=== PATIENT | male | born 1955 ===

== ENCOUNTER 2017-10-20 13:38 | Emergency (ER) | payer OTHER, SELFPAY ==
[2017-10-20 13:39] VITALS: BMI 33.7
[2017-10-20 13:54] VITALS: RESP 18; TEMP 97.8
[2017-10-20 15:12] LABS: ALB/GLOB RATIO 1.4 (1.1-1.8); ALBUMIN 4.7 g/dL (3.0-4.8); CALCIUM 9.6 mg/dL (8.4-10.5); GFR AFRICAN-AMERICAN > 60; GFR NON-AFRICAN AMERICAN > 60
[2017-10-20 15:17] LABS: BASO # 0.05 K/mm3 (0.0-2.0); EOS # 0.2 (0.0-0.7); EOS % 3.1 % (1.5-5.0); GRAN # 2.77 (1.4-6.5); GRAN % 57.7 % (50.0-68.0); HEMOGLOBIN 13.8 g/dL (14.0-18.0); LYMPH # 1.4 (1.2-3.4); LYMPH % 28.8 % (22.0-35.0); MEAN CELL VOLUME 87.6 fl (80.0-105.0); MEAN CORPUSCULAR HGB CONC 33.1 g/dl (31.0-37.0); MEAN PLATELET VOLUME 9.5 fl (7.0-11.0); MONO # 0.5 (0.1-0.6); MONO % 9.4 % (1.0-6.0); RBC 4.76 10^6/uL (3.5-6.1); RED CELL DISTRIBUTION WIDTH 14.8 % (11.5-14.5); WHITE BLOOD COUNT 4.8 10^3/ul (4.5-11.0)
--- NOTE | 2017-10-20 15:23 | ED PDOC ---
Arrival/HPI - General Chief Complaint: ENT Problem Time Seen by Provider: 10/20/17 14:31 Historian: Patient - History of Present Illness Narrative History of Present Illness (Text): 10/20/17 15:20 62yo male with PMHx of hypertension and CAD present with complaint of nose bleeds, usually in the morning. States bleeding started 2weeks ago. leeding usually last for seconds, but lasted for 3minutes this morning. He denies nasal congestion, rhinorrhea, cold symptoms, facial pain, any other complaint. Past Medical History - Provider Review Nursing Documentation Reviewed: Yes - Infectious Disease Hx of Infectious Diseases: None - Cardiac Hx Cardiac Disorders: Yes Hx Hypertension: Yes Other/Comment: CAD - Pulmonary Hx Respiratory Disorders: No - Neurological Hx Neurological Disorder: No - HEENT Hx HEENT Disorder: No - Renal Hx Renal Disorder: No - Endocrine/Metabolic Hx Endocrine Disorders: No - Hematological/Oncological Hx Blood Disorders: No - Integumentary Hx Dermatological Disorder: No - Musculoskeletal/Rheumatological Hx Musculoskeletal Disorders: No - Gastrointestinal Hx Gastrointestinal Disorders: No - Genitourinary/Gynecological Hx Genitourinary Disorders: No - Psychiatric Hx Psychophysiologic Disorder: No Hx Emotional Abuse: No Hx Physical Abuse: No Hx Substance Use: No - Surgical History Hx Cardiac Catheterization: Yes Hx Coronary Stent: Yes (X1) Other/Comment: RT HAND CYST REMOVAL - Anesthesia Hx Anesthesia: Yes Hx Anesthesia Reactions: No Hx Malignant Hyperthermia: No - Suicidal Assessment Feels Threatened In Home Enviroment: No Family/Social History - Physician Review Nursing Documentation Reviewed: Yes Family/Social History: Unknown Family HX Smoking Status: Current Some Days Smoker Hx Alcohol Use: Yes (BEER ) Frequency of alcohol use: Socially Hx Substance Use: No Allergies/Home Meds Allergies/Adverse Reactions: Allergies No Known Allergies Allergy (Verified 10/20/17 13:52) Home Medications: Home Meds Medication Instructions Recorded Confirmed Aspirin [Aspirin Chewable] 81 mg PO DAILY 02/24/16 10/20/17 Review of Systems - Physician Review All systems were reviewed & negative as marked: Yes - Review of Systems Constitutional: Normal Eyes: Normal ENT: Epistaxis Respiratory: Normal Cardiovascular: Normal Gastrointestinal: Normal Genitourinary Male: Normal Musculoskeletal: Normal Skin: Normal Neurological: Normal Endocrine: Normal Hemo/Lymphatic: Normal Psychiatric: Normal Physical Exam Vital Signs Reviewed: Yes Vital Signs Temp Pulse Resp BP Pulse Ox 10/20/17 13:52 97.8 F 75 18 163/94 H 97 Temperature: Afebrile Blood Pressure: Normal Pulse: Regular Respiratory Rate: Normal Appearance: Positive for: Well-Appearing, Non-Toxic, Comfortable Pain Distress: None Mental Status: Positive for: Alert and Oriented X 3 - Systems Exam Head: Present: Atraumatic, Normocephalic Pupils: Present: PERRL Extroacular Muscles: Present: EOMI Conjunctiva: Present: Normal Mouth: Present: Moist Mucous Membranes Nose (Internal): Present: Normal Inspection. No: No Active Bleeding Neck: Present: Normal Range of Motion Respiratory/Chest: Present: Clear to Auscultation, Good Air Exchange. No: Respiratory Distress, Accessory Muscle Use Cardiovascular: Present: Regular Rate and Rhythm, Normal S1, S2. No: Murmurs Abdomen: Present: Normal Bowel Sounds. No: Tenderness, Distention, Peritoneal Signs Back: Present: Normal Inspection Upper Extremity: Present: Normal Inspection. No: Cyanosis, Edema Lower Extremity: Present: Normal Inspection. No: Edema Neurological: Present: GCS=15, CN II-XII Intact, Speech Normal Skin: Present: Warm, Dry, Normal Color. No: Rashes Psychiatric: Present: Alert, Oriented x 3, Normal Insight, Normal Concentration Medical Decision Making ED Course and Treatment: 10/20/17 15:43 PT was not actively bleeding in ED. His lab was unremarkble. Mild elevatiion of INR was noted, pt is on ASA. He will be DC home and referred to ENT. - Lab Interpretations Lab Results: 10/20/17 14:31 10/20/17 14:31 Lab Results 10/20/17 14:31: PT 13.0 H, INR 1.14 H, APTT 29.4 10/20/17 14:31: Sodium 141, Potassium 4.8, Chloride 104, Carbon Dioxide 25, Anion Gap 16, BUN 13, Creatinine 0.6 L, Est GFR ( Amer) > 60, Est GFR ( Non-Af Amer) > 60, Random Glucose 91, Calcium 9.6, Total Bilirubin 0.6, AST 41, ALT 59 H, Alkaline Phosphatase 69, Total Protein 8.0, Albumin 4.7, Globulin 3.3 , Albumin/Globulin Ratio 1.4 10/20/17 14:31: WBC 4.8, RBC 4.76, Hgb 13.8 L, Hct 41.7 L, MCV 87.6, MCH 29.0, MCHC 33.1, RDW 14.8 H, Plt Count 193, MPV 9.5, Gran % 57.7, Lymph % (Auto) 28.8 , [place] % (Auto) 9.4 H, Eos % (Auto) 3.1, Baso % (Auto) 1.0, Gran # 2.77, Lymph # 1.4, [place] # 0.5, Eos # 0.2, Baso # 0.05 Disposition/Present on Arrival - Present on Arrival Any Indicators Present on Arrival: No History of DVT/PE: No History of Uncontrolled Diabetes: No Urinary Catheter: No History of Decub. Ulcer: No History Surgical Site Infection Following: None - Disposition Have Diagnosis and Disposition been Completed?: Yes Diagnosis: Epistaxis Disposition: HOME/ ROUTINE Disposition Time: 15:45 Patient Plan: Discharge Condition: STABLE Discharge Instructions (ExitCare): Nosebleed (ED) Additional Instructions: Follow up with your doctor/ENT Return to ED for any new symptoms Referrals: Daniele Smith, [Primary Care Provider] - Follow up with primary Luis William DO [Staff Provider] - Follow up with primary Forms: [employer] (Welsh)
[2017-10-20 15:29] LABS: ALT/SGPT 59 U/L (7-56); AST/SGOT 41 U/L (17-59); BLOOD UREA NITROGEN 13 mg/dL (7-21)
[2017-10-20 15:35] LABS: INR 1.14 (0.93-1.08); PARTIAL THROMBOPLASTIN TIME 29.4 Seconds (25.1-36.5)
[2017-10-20 16:02] VITALS: BP 132/79; PULSE 78; O2SAT 98
== END 2017-10-20 16:02 | disposition home or self-care (01) ==
LOC: ED 13:38
DX: R04.0 Epistaxis (principal); I10 Essential (primary) hypertension; F17.210 Nicotine dependence, cigarettes, uncomplicated

== ENCOUNTER 2018-01-20 17:19 | Emergency (ER) | payer OTHER ==
[2018-01-20 17:19] VITALS: BMI 33.7
[2018-01-20 17:38] VITALS: TEMP 98; O2SAT 98
[2018-01-20] MEDS ORDERED: TDAP Vaccine 0.5 mL Syr IM ONE (17:58)
--- NOTE | 2018-01-20 17:58 | ED PDOC ---
Arrival/HPI - General Chief Complaint: Abnormal Skin Integrity Time Seen by Provider: 01/20/18 17:41 Historian: Patient - History of Present Illness Narrative History of Present Illness (Text): 01/20/18 17:48 62yo male with PMhx of hypertension present with complaint of facial laceration since yesterday. States he slipped from a ladder and hit his face on a dresser, sustaining the laceration yesterday at 2200. States he cleaned it and came to ED for evaluation. He states his last TD booster is over 5years. Denies hitting g head anywhere else. Denies LOC, focal weakness, visual changes, any other complaint. Past Medical History - Provider Review Nursing Documentation Reviewed: Yes - Infectious Disease Hx of Infectious Diseases: None - Cardiac Hx Cardiac Disorders: Yes Hx Hypertension: Yes Other/Comment: CAD cardiac stent - Pulmonary Hx Respiratory Disorders: No - Neurological Hx Neurological Disorder: No - HEENT Hx HEENT Disorder: No - Renal Hx Renal Disorder: No - Endocrine/Metabolic Hx Endocrine Disorders: No - Hematological/Oncological Hx Blood Disorders: No - Integumentary Hx Dermatological Disorder: No - Musculoskeletal/Rheumatological Hx Musculoskeletal Disorders: No - Gastrointestinal Hx Gastrointestinal Disorders: No - Genitourinary/Gynecological Hx Genitourinary Disorders: No - Psychiatric Hx Psychophysiologic Disorder: No Hx Emotional Abuse: No Hx Physical Abuse: No Hx Substance Use: No - Surgical History Hx Cardiac Catheterization: Yes Hx Coronary Stent: Yes (X1) Other/Comment: RT HAND CYST REMOVAL - Anesthesia Hx Anesthesia: Yes Hx Anesthesia Reactions: No Hx Malignant Hyperthermia: No - Suicidal Assessment Feels Threatened In Home Enviroment: No Family/Social History - Physician Review Nursing Documentation Reviewed: Yes Family/Social History: Unknown Family HX Smoking Status: Current Some Days Smoker Hx Alcohol Use: Yes (BEER ) Hx Substance Use: No Allergies/Home Meds Allergies/Adverse Reactions: Allergies No Known Allergies Allergy (Verified 10/20/17 13:52) Home Medications: Home Meds Medication Instructions Recorded Confirmed Aspirin [Aspirin Chewable] 81 mg PO DAILY 02/24/16 10/20/17 Review of Systems - Physician Review All systems were reviewed & negative as marked: Yes - Review of Systems Constitutional: Normal Eyes: Normal ENT: Normal Respiratory: Normal Cardiovascular: Normal Gastrointestinal: Normal Genitourinary Male: Normal Musculoskeletal: Normal Skin: Laceration (Facial laceration) Neurological: Normal Endocrine: Normal Hemo/Lymphatic: Normal Psychiatric: Normal Physical Exam Vital Signs Reviewed: Yes Vital Signs Temp Pulse Resp BP Pulse Ox 01/20/18 18:20 84 16 145/86 98 01/20/18 17:37 98.0 F 74 18 152/103 H 98 Temperature: Afebrile Blood Pressure: Hypertensive Pulse: Regular Respiratory Rate: Normal Appearance: Positive for: Well-Appearing, Non-Toxic, Comfortable Pain Distress: None Mental Status: Positive for: Alert and Oriented X 3 - Systems Exam Head: Present: Atraumatic, Normocephalic Pupils: Present: PERRL Extroacular Muscles: Present: EOMI Conjunctiva: Present: Normal Mouth: Present: Moist Mucous Membranes Neck: Present: Normal Range of Motion Respiratory/Chest: Present: Clear to Auscultation, Good Air Exchange. No: Respiratory Distress, Accessory Muscle Use Cardiovascular: Present: Regular Rate and Rhythm, Normal S1, S2. No: Murmurs Abdomen: No: Tenderness, Distention, Peritoneal Signs Back: Present: Normal Inspection Upper Extremity: Present: Normal Inspection. No: Cyanosis, Edema Lower Extremity: Present: Normal Inspection. No: Edema Neurological: Present: GCS=15, CN II-XII Intact, Speech Normal Skin: Present: Warm, Dry, Normal Color, Laceration (4.0cm linear laceration inbetween the eyebrow /face). No: Rashes Psychiatric: Present: Alert, Oriented x 3, Normal Insight, Normal Concentration Medical Decision Making ED Course and Treatment: 01/20/18 23:49 Pt present to ED with laceration that he sustained over 15hours ago. He was hemodynamically stable in ED. Laceration was pass the allow time of approximation with suture. Laceration was irrigated with NS and loosely approximated with steri strip. TD booster was given and pt was placed on prophylactic abx. Advised to keep wound clean and dry and referred to his PMD - Medication Orders Current Medication Orders: Discontinued Medications Cephalexin Monohydrate (Keflex) 500 mg PO STAT STA PRN Reason: Protocol Stop: 01/20/18 17:42 Last Admin: 01/20/18 18:11 Dose: 500 mg Tetanus/Reduced Diphtheria/Acell Pertussis (Boostrix Vaccine Inj) 0.5 ml IM .ONCE ONE Stop: 04/15/18 17:59 Last Admin: 01/20/18 18:11 Dose: 0.5 ml MAR Immunization Data Document 01/20/18 18:11 SRE (Rec: 01/20/18 18:12 SRE [id number]) Immunization Data Vaccine Information Sheet Given Yes Immunization Registry Document 01/20/18 18:11 SRE (Rec: 01/20/18 18:12 SRE [id number]) Immunization Registry Consent Date 10/20/17 Procedure: Wound Repair - Consent Obtained Consent obtained: Verbal - Performed by Performed by: Mid-level Provider - Indications Indication(s):: Laceration - Location Location:: Face Shape:: Linear Dimensions Length cm: 4 - Irrigated Irrigated with ml of normal saline: 50 - Complexity Complexity:: Intermediate (2 layer) - Wound repair method Driggs:: Steri-strips - Muscle repiar layer closed with Muscle repair layer closed with:: Tetanus ordered - Patient tolerated procedure Patient Tolerated Procedure:: Well Disposition/Present on Arrival - Present on Arrival Any Indicators Present on Arrival: No History of DVT/PE: No History of Uncontrolled Diabetes: No Urinary Catheter: No History of Decub. Ulcer: No History Surgical Site Infection Following: None - Disposition Have Diagnosis and Disposition been Completed?: Yes Diagnosis: Facial laceration Disposition: HOME/ ROUTINE Disposition Time: 18:00 Patient Plan: Discharge Condition: STABLE Discharge Instructions (ExitCare): Laceration Repair Additional Instructions: Keep wound clean and dry Follow up with your Doctor Return to ED for redness, discharge, any other complaint Prescriptions: Cephalexin [Keflex] 500 mg PO TID #21 capsule Ref[place]: [facility] [place] - Follow up with primary Forms: [employer] (Wolof)
[2018-01-20 18:21] VITALS: BP 145/86; PULSE 84; RESP 16
== END 2018-01-20 18:20 | disposition home or self-care (01) ==
LOC: ED 17:19
DX: S01.81XA Laceration without foreign body of other part of head, initial encounter (principal); W11.XXXA Fall on and from ladder, initial encounter; I10 Essential (primary) hypertension; F17.200 Nicotine dependence, unspecified, uncomplicated; Z23 Encounter for immunization

== ENCOUNTER 2018-12-24 09:28 | Outpatient (CLI) | payer OTHER | END 2018-12-24 09:29 | disposition home or self-care (01) | LOC: LAB 09:28 ==

== ENCOUNTER 2019-01-02 02:17 | Emergency (ER) | payer OTHER ==
[2019-01-02 02:31] VITALS: BMI 40.3
[2019-01-02 02:36] VITALS: RESP 18; TEMP 98.1
--- NOTE | 2019-01-02 02:44 | ED PDOC ---
Arrival/HPI - General Chief Complaint: Abdominal Pain Time Seen by Provider: 01/02/19 02:37 Historian: Patient - History of Present Illness Narrative History of Present Illness (Text): 01/02/19 02:44 Yossi Angulo is a 63 year old male, whose past medical history includes hypertension, hyperlipidemia, CAD, and DVT, who presents to the Emergency department complaining of abdominal pain. Patient states he has been experiencing intermittent LLQ abdominal pain for the past 4-5 days. Patient notes he was constipated for 2 days initially, but has been having regular bowel movements since then. Patient denies any fever, chills, chest pain, shortness of breath, nausea, vomiting, diarrhea, urinary symptoms, back pain, neck pain, headache, dizziness, or any other complaints. Time/Duration: < week Symptom Onset: Gradual Symptom Course: Unchanged Activities at Onset: Light Context: Home Past Medical History - Provider Review Nursing Documentation Reviewed: Yes - Infectious Disease Hx of Infectious Diseases: None - Cardiac Hx Cardiac Disorders: Yes Hx Hypertension: Yes Other/Comment: CAD cardiac stent - Pulmonary Hx Respiratory Disorders: No - Neurological Hx Neurological Disorder: No - HEENT Hx HEENT Disorder: No - Renal Hx Renal Disorder: No - Endocrine/Metabolic Hx Endocrine Disorders: No - Hematological/Oncological Hx Blood Disorders: No - Integumentary Hx Dermatological Disorder: No - Musculoskeletal/Rheumatological Hx Musculoskeletal Disorders: No - Gastrointestinal Hx Gastrointestinal Disorders: No - Genitourinary/Gynecological Hx Genitourinary Disorders: No - Psychiatric Hx Psychophysiologic Disorder: No Hx Emotional Abuse: No Hx Physical Abuse: No Hx Substance Use: No - Surgical History Hx Cardiac Catheterization: Yes Hx Coronary Stent: Yes (X1) Other/Comment: RT HAND CYST REMOVAL - Anesthesia Hx Anesthesia: Yes Hx Anesthesia Reactions: No Hx Malignant Hyperthermia: No - Suicidal Assessment Feels Threatened In Home Enviroment: No Family/Social History - Physician Review Nursing Documentation Reviewed: Yes Family/Social History: Unknown Family HX Smoking Status: Current Some Days Smoker Hx Alcohol Use: Yes (BEER ) Hx Substance Use: No Allergies/Home Meds Allergies/Adverse Reactions: Allergies No Known Allergies Allergy (Verified 10/20/17 13:52) Home Medications: Home Meds Medication Instructions Recorded Confirmed Aspirin [Aspirin Chewable] 81 mg PO DAILY 02/24/16 01/02/19 Review of Systems - Physician Review All systems were reviewed & negative as marked: Yes - Review of Systems Constitutional: Normal. absent: Fevers Eyes: Normal ENT: Normal Respiratory: Normal. absent: SOB, Cough Cardiovascular: Normal. absent: Chest Pain Gastrointestinal: Abdominal Pain, Constipation. absent: Diarrhea, Vomiting Genitourinary Male: Normal. absent: Dysuria, Frequency, Hematuria, Urinary Output Changes Musculoskeletal: Normal. absent: Back Pain, Neck Pain Skin: Normal. absent: Rash Neurological: Normal. absent: Headache, Dizziness Endocrine: Normal Hemo/Lymphatic: Normal Psychiatric: Normal Physical Exam Vital Signs Reviewed: Yes Vital Signs Temp Pulse Resp BP Pulse Ox 01/02/19 02:31 98.1 F 80 18 151/93 H 96 Temperature: Afebrile Blood Pressure: Normal Pulse: Regular Respiratory Rate: Normal Appearance: Positive for: Well-Appearing, Non-Toxic, Comfortable Pain Distress: None Mental Status: Positive for: Alert and Oriented X 3 - Systems Exam Head: Present: Atraumatic, Normocephalic Pupils: Present: PERRL Extroacular Muscles: Present: EOMI Conjunctiva: Present: Normal Mouth: Present: Moist Mucous Membranes Neck: Present: Normal Range of Motion Respiratory/Chest: Present: Clear to Auscultation, Good Air Exchange. No: Respiratory Distress, Accessory Muscle Use Cardiovascular: Present: Regular Rate and Rhythm, Normal S1, S2. No: Murmurs Abdomen: No: Tenderness, Distention, Peritoneal Signs Back: Present: Normal Inspection Upper Extremity: Present: Normal Inspection. No: Cyanosis, Edema Lower Extremity: Present: Normal Inspection. No: Edema Neurological: Present: GCS=15, CN II-XII Intact, Speech Normal Skin: Present: Warm, Dry, Normal Color. No: Rashes Psychiatric: Present: Alert, Oriented x 3, Normal Insight, Normal Concentration Medical Decision Making ED Course and Treatment: 01/02/19 02:44 Impression: 63 year old male complaining of LLQ pain. Plan: -- CT Abdomen and Pelvis with IV contrast -- Labs, lipase -- Urinalysis -- IV fluids -- Reassess and disposition Prior Visits: Notes and results from previous visits were reviewed. Progress Notes: 01/02/19 05:51 CT Abdomen and Pelvis: 4 mm obstructing stone of the left ureter. Mild left hydroureteronephrosis. Small sliding hiatal hernia. 5 mm left renal nonobstructing stone. Moderate prostatomegaly impinging on the bladder base. Mild diffuse thickening of the bladder from chronic bladder outlet obstruction. The liver is of uniform attenuation without mass or defect. There is no intra or extrahepatic biliary ductal dilatation. The spleen is normal. The gallbladder is within normal limits. The pancreas is of normal contour and attenuation characteristics. There is no evidence of adrenal mass. There is no evidence of renal or ureteral mass. No right ureteral calculi are identified. There is no right hydroureter or hydronephrosis. No evidence for appendicitis. There is no bowel wall thickening. No evidence for small or large bowel obstruction. There is no evidence of abdominal ascites or lymphadenopathy. There is no evidence of intrinsic or extrinsic bladder mass. There is no pelvic ascites or lymphadenopathy. Images of the lung bases show no evidence of pleural or parenchymal mass. There are no pleural effusions. The bony structures are free of lytic or blastic lesions. IMPRESSION: 4 mm obstructing stone of the left ureter. Mild left hydroureteronephrosis. Small sliding hiatal hernia. 5 mm left renal nonobstructing stone. Moderate prostatomegaly impinging on the bladder base. Mild diffuse thickening of the bladder from chronic bladder outlet obstruction. Electronically signed on Jan 02, 2019 5:50:04 AM EDT by: Umang Puentes M.D., Certified by MARCELO, MSK, Neuroradiology - Scribe Statement The provider has reviewed the documentation as recorded by the Ketty Ricketts Provider Scribe Attestation: All medical record entries made by the Scribe were at my direction and personally dictated by me. I have reviewed the chart and agree that the record accurately reflects my personal performance of the history, physical exam, medical decision making, and the department course for this patient. I have also personally directed, reviewed, and agree with the discharge instructions and disposition. Disposition/Present on Arrival - Present on Arrival Any Indicators Present on Arrival: No History of DVT/PE: No History of Uncontrolled Diabetes: No Urinary Catheter: No History of Decub. Ulcer: No History Surgical Site Infection Following: None - Disposition Have Diagnosis and Disposition been Completed?: Yes Diagnosis: Kidney stone on left side Disposition: HOME/ ROUTINE Disposition Time: 06:00 Condition: GOOD Discharge Instructions (ExitCare): Kidney Stones in Adults Prescriptions: Tamsulosin [Flomax] 0.4 mg PO DAILY #10 cap Cephalexin [Keflex] 500 mg PO BID #14 capsule Tramadol HCl [Ultram] 50 mg PO QID #10 tab Referrals: Nirav Stone MD [Staff Provider] - Follow up with primary Jeana Castillo MD [Medical Doctor] - Follow up with primary Forms: [employer] (Irish)
[2019-01-02] MEDS ORDERED: Sodium Chloride 0.9% 1,000 ML IV SCH (03:00)
[2019-01-02 03:07] LABS: BASO # 0.03 K/mm3 (0.0-2.0); BASO % 0.5 % (0.0-3.0); EOS # 0.2 (0.0-0.7); LYMPH # 1.6 (1.2-3.4); MEAN CELL VOLUME 85.8 fl (80.0-105.0); MEAN CORPUSCULAR HEMOGLOBIN 28.7 pg (25.0-35.0); MEAN CORPUSCULAR HGB CONC 33.5 g/dl (31.0-37.0); MEAN PLATELET VOLUME 9.3 fl (7.0-11.0); MONO # 0.5 (0.1-0.6); RBC 4.87 10^6/uL (3.5-6.1); RED CELL DISTRIBUTION WIDTH 14.5 % (11.5-14.5)
[2019-01-02 03:08] LABS: PH,URINE 5.5 (4.7-8.0); URINE BILIRUBIN NEGATIVE (NEGATIVE); URINE BLOOD SMALL (NEGATIVE); URINE GLUCOSE (UA) NEGATIVE (NEGATIVE); URINE LEUKOCYTE ESTERASE NEGATIVE Leu/uL (NEGATIVE); URINE PROTEIN NEGATIVE mg/dL (<30 mg/dL); URINE UROBILINOGEN 0.2 E.U./dL (<1 E.U./dL)
[2019-01-02 03:13] LABS: URINE APPEARANCE SL CLOUDY (CLEAR); URINE COLOR YELLOW (YELLOW)
[2019-01-02 03:18] LABS: ALB/GLOB RATIO 1.2 (1.1-1.8); ALBUMIN 4.7 g/dL (3.0-4.8); ALT/SGPT 101 U/L (7-56); AST/SGOT 78 U/L (17-59); BLOOD UREA NITROGEN 15 mg/dL (7-21); CALCIUM 9.8 mg/dL (8.4-10.5); GFR NON-AFRICAN AMERICAN > 60; LIPASE 125 U/L (23-300)
[2019-01-02 03:58] LABS: URINE EPITHELIAL CELLS 0 - 2 /hpf (0-5); URINE WBC 0 - 2 /hpf (0-6)
[2019-01-02 06:21] VITALS: BP 132/72; PULSE 84; O2SAT 97
--- NOTE | 2019-01-02 09:40 | CT ---
Date of service: 01/02/2019 PROCEDURE: CT Abdomen and Pelvis with contrast HISTORY: llq pain COMPARISON: None. TECHNIQUE: Contrast dose: 150 mL Omnipaque 350 Radiation dose: Total exam DLP = 965.57 mGy-cm. This CT exam was performed using one or more of the following dose reduction techniques: Automated exposure control, adjustment of the mA and/or kV according to patient size, and/or use of iterative reconstruction technique. FINDINGS: LOWER THORAX: Unremarkable. LIVER: Normal size, contour and attenuation. In the caudate lobe of the liver there is a nonspecific 12 mm rounded low-attenuation lesion. No other mass. Smooth contour. No biliary dilatation. GALLBLADDER AND BILE DUCTS: Unremarkable. PANCREAS: Unremarkable. No gross lesion or ductal dilatation. SPLEEN: Unremarkable. ADRENALS: Unremarkable. No mass. KIDNEYS AND URETERS: Multiple bilateral small rounded low-attenuation masses, right greater than left. Likely cortical cysts. Mild left hydroureteronephrosis. Obstructing 5 mm calculus at left UVJ. There is periureteric stranding about the distal left ureter. Several very small nonobstructing calculi in the upper pole and mid left kidney. Abnormal axis of left kidney, developmental origin. VASCULATURE: Unremarkable. No aortic aneurysm. Atherosclerotic calcification of the abdominal aorta. BOWEL: Unremarkable. No obstruction. No gross mural thickening. APPENDIX: Normal appendix. PERITONEUM: Unremarkable. No free fluid. No free air. LYMPH NODES: Unremarkable. No enlarged lymph nodes. BLADDER: Poorly distended REPRODUCTIVE: Enlarged prostate BONES: No acute fracture. OTHER FINDINGS: None. IMPRESSION: Obstructing 5 mm calculus at the left ureterovesical junction. Mild left hydroureteronephrosis. Two small nonobstructing left renal calculi. Additional nonacute findings as above. The preliminary findings for this examination were reported by [facility] at 5:50 a.m. on 01/02/2019. There is concurrence of this report with the preliminary findings.
== END 2019-01-02 06:15 | disposition home or self-care (01) ==
LOC: ED 02:17
DX: N20.0 Calculus of kidney (principal); I25.10 Atherosclerotic heart disease of native coronary artery without angina pectoris; I10 Essential (primary) hypertension; E78.5 Hyperlipidemia, unspecified; Z95.5 Presence of coronary angioplasty implant and graft; F17.210 Nicotine dependence, cigarettes, uncomplicated
CPT/HCPCS: 74177; 80053; 81001; 83690; 85025; 99283; J7030; Q9967

== ENCOUNTER 2019-03-03 02:06 | Emergency (ER) | payer OTHER ==
[2019-03-03 02:06] VITALS: BMI 40.3
[2019-03-03 02:29] VITALS: TEMP 98; O2SAT 95
--- NOTE | 2019-03-03 02:36 | ED PDOC ---
Arrival/HPI - General Chief Complaint: Dizziness/Lightheaded Time Seen by Provider: 03/03/19 02:27 Historian: Patient - History of Present Illness Narrative History of Present Illness (Text): 03/03/19 02:34 Yossi Angulo is a 63 year old male, whose past medical history includes hypertension, hyperlipidemia, CAD, and DVT, who presents to the Emergency department complaining of dizziness. Patient states he has been experiencing in termittent episodes of light-headedness and dizziness for the past 4 days. Patient denies any fever, chills, chest pain, shortness of breath, nausea, vomiting, diarrhea, urinary symptoms, back pain, neck pain, or any other complaints. Symptom Onset: Gradual Symptom Course: Unchanged Activities at Onset: Light Context: Home Past Medical History - Provider Review Nursing Documentation Reviewed: Yes - Infectious Disease Hx of Infectious Diseases: None - Cardiac Hx Cardiac Disorders: Yes Hx Hypertension: Yes Other/Comment: CAD cardiac stent - Pulmonary Hx Respiratory Disorders: No - Neurological Hx Neurological Disorder: No - HEENT Hx HEENT Disorder: No - Renal Hx Renal Disorder: No - Endocrine/Metabolic Hx Endocrine Disorders: No - Hematological/Oncological Hx Blood Disorders: No - Integumentary Hx Dermatological Disorder: No - Musculoskeletal/Rheumatological Hx Musculoskeletal Disorders: No - Gastrointestinal Hx Gastrointestinal Disorders: No - Genitourinary/Gynecological Hx Genitourinary Disorders: No - Psychiatric Hx Psychophysiologic Disorder: No Hx Emotional Abuse: No Hx Physical Abuse: No Hx Substance Use: No - Surgical History Hx Cardiac Catheterization: Yes Hx Coronary Stent: Yes (X1) Other/Comment: RT HAND CYST REMOVAL - Anesthesia Hx Anesthesia: Yes Hx Anesthesia Reactions: No Hx Malignant Hyperthermia: No - Suicidal Assessment Feels Threatened In Home Enviroment: No Family/Social History - Physician Review Nursing Documentation Reviewed: Yes Family/Social History: Unknown Family HX Smoking Status: Current Some Days Smoker Hx Alcohol Use: Yes (BEER ) Hx Substance Use: No Allergies/Home Meds Allergies/Adverse Reactions: Allergies No Known Allergies Allergy (Verified 03/03/19 02:18) Home Medications: Home Meds Medication Instructions Recorded Confirmed Aspirin [Aspirin Chewable] 81 mg PO DAILY 02/24/16 03/03/19 Review of Systems - Physician Review All systems were reviewed & negative as marked: Yes - Review of Systems Constitutional: Normal. absent: Fevers Eyes: Normal ENT: Normal Respiratory: Normal. absent: SOB, Cough Cardiovascular: Normal. absent: Chest Pain Gastrointestinal: Normal. absent: Abdominal Pain, Diarrhea, Nausea, Vomiting Genitourinary Male: Normal. absent: Dysuria, Frequency, Urinary Output Changes Musculoskeletal: Normal. absent: Back Pain, Neck Pain Skin: Normal. absent: Rash Neurological: Dizziness Endocrine: Normal Hemo/Lymphatic: Normal Psychiatric: Normal Physical Exam Vital Signs Reviewed: Yes Vital Signs Temp Pulse Resp BP Pulse Ox 03/03/19 02:28 98.0 F 70 19 125/76 95 03/03/19 02:15 68 15 125/76 90 L Temperature: Afebrile Blood Pressure: Normal Pulse: Regular Respiratory Rate: Normal Appearance: Positive for: Well-Appearing, Non-Toxic, Comfortable Pain Distress: None Mental Status: Positive for: Alert and Oriented X 3 Finger Stick Blood Glucose: 90 - Systems Exam Head: Present: Atraumatic, Normocephalic Pupils: Present: PERRL Extroacular Muscles: Present: EOMI Conjunctiva: Present: Normal Mouth: Present: Moist Mucous Membranes Neck: Present: Normal Range of Motion Respiratory/Chest: Present: Clear to Auscultation, Good Air Exchange. No: Respiratory Distress, Accessory Muscle Use Cardiovascular: Present: Regular Rate and Rhythm, Normal S1, S2. No: Murmurs Abdomen: No: Tenderness, Distention, Peritoneal Signs Back: Present: Normal Inspection Upper Extremity: Present: Normal Inspection. No: Cyanosis, Edema Lower Extremity: Present: Normal Inspection. No: Edema Neurological: Present: GCS=15, CN II-XII Intact, Speech Normal Skin: Present: Warm, Dry, Normal Color. No: Rashes Psychiatric: Present: Alert, Oriented x 3, Normal Insight, Normal Concentration Medical Decision Making ED Course and Treatment: 03/03/19 02:34 Impression: 63 year old male complaining of light-headedness and dizziness. Plan: -- CT Head w/o contrast -- EKG -- Chest X-ray -- Labs, troponin -- Reassess and disposition Prior Visits: Notes and results from previous visits were reviewed. Progress Notes: Reviewed EKG, NSR at [address]-segment elevations or depressions, no T-wave inversions, normal intervals. 03/03/19 03:47 CT Head: Normal size of the ventricles and extra-axial spaces for the patient's age. Normal white matter tracts of the supratentorial brain. Normal basal ganglia and thalami. Normal brainstem. Normal cerebellum. There is no demonstrated extra-axial, intraparenchymal, or intraventricular hemorrhage. There are no findings of an acute ischemic infarction. Normal calvarium. There is no demonstrated fracture. Normal soft tissue structures. Mild chronic mucosal inflammatory changes of the ethmoid air cells. Mild chronic mucosal inflammatory changes of the maxillary sinuses. Normal remaining visualized paranasal sinuses. IMPRESSION: Normal unenhanced CT scan of the brain. Chronic sinusitis. Electronically signed on March 03, 2019 3:44:31 AM EDT by: Umang Puentes M.D., Certified by ABR, MSK, Neuroradiology - RAD Interpretation Squirt Machine Operator: Radiologist - Scribe Statement The provider has reviewed the documentation as recorded by the Tamibe Marah Ricketts Provider Scribe Attestation: All medical record entries made by the Scribe were at my direction and personally dictated by me. I have reviewed the chart and agree that the record accurately reflects my personal performance of the history, physical exam, medical decision making, and the department course for this patient. I have also personally directed, reviewed, and agree with the discharge instructions and disposition. Disposition/Present on Arrival - Present on Arrival Any Indicators Present on Arrival: No History of DVT/PE: No History of Uncontrolled Diabetes: No Urinary Catheter: No History of Decub. Ulcer: No History Surgical Site Infection Following: None - Disposition Have Diagnosis and Disposition been Completed?: Yes Diagnosis: Sinusitis, Dizziness Disposition: HOME/ ROUTINE Disposition Time: 05:24 Condition: GOOD Discharge Instructions (ExitCare): Vertigo (a Type of Dizziness), Sinusitis in Adults Prescriptions: Amoxicillin 875 mg PO BID #20 tab Meclizine [Antivert] 12.5 mg PO TID #21 tab Forms: [employer] ([place])
[2019-03-03 03:01] LABS: ALB/GLOB RATIO 1.3 (1.1-1.8); ALBUMIN 4.4 g/dL (3.0-4.8); ALT/SGPT 52 U/L (7-56); AST/SGOT 34 U/L (17-59); BLOOD UREA NITROGEN 14 mg/dL (7-21); CALCIUM 9.6 mg/dL (8.4-10.5); GFR NON-AFRICAN AMERICAN > 60
[2019-03-03 03:02] LABS: BASO # 0.06 K/mm3 (0.0-2.0); EOS # 0.2 (0.0-0.7); EOS % 3.4 % (1.5-5.0); HEMOGLOBIN 13.6 g/dL (14.0-18.0); LYMPH # 1.8 (1.2-3.4); LYMPH % 31.1 % (22.0-35.0); MEAN CELL VOLUME 84.1 fl (80.0-105.0); MEAN CORPUSCULAR HGB CONC 33.3 g/dl (31.0-37.0); MEAN PLATELET VOLUME 9.5 fl (7.0-11.0); MONO # 0.6 (0.1-0.6); MONO % 9.5 % (1.0-6.0); RBC 4.85 10^6/uL (3.5-6.1); WHITE BLOOD COUNT 5.9 10^3/uL (4.5-11.0)
[2019-03-03 03:12] LABS: TROPONIN I < 0.01 ng/mL
[2019-03-03 05:02] VITALS: BP 116/73; PULSE 63; RESP 17
--- NOTE | 2019-03-03 10:58 | RAD ---
Date of service: 03/03/2019 PROCEDURE: CHEST RADIOGRAPH, 1 VIEW HISTORY: dizzy COMPARISON: Chest radiograph dated 09/24/2016. FINDINGS: LUNGS: Clear. PLEURA: No pneumothorax or pleural fluid seen. CARDIOVASCULAR: Aortic atherosclerotic calcifications. Cardiomediastinal silhouette stably enlarged. OSSEOUS STRUCTURES: Unchanged. VISUALIZED UPPER ABDOMEN: Normal. OTHER FINDINGS: None. IMPRESSION: No active disease.
--- NOTE | 2019-03-03 10:59 | CT ---
Date of service: 03/03/2019 PROCEDURE: CT HEAD WITHOUT CONTRAST. HISTORY: dizzy COMPARISON: None available. TECHNIQUE: Axial computed tomography images were obtained through the head/brain without intravenous contrast. Radiation dose: Total exam DLP = 1009.28 mGy-cm. This CT exam was performed using one or more of the following dose reduction techniques: Automated exposure control, adjustment of the mA and/or kV according to patient size, and/or use of iterative reconstruction technique. FINDINGS: HEMORRHAGE: No intracranial hemorrhage. BRAIN: No mass effect or edema. Atrophy. Chronic microvascular ischemic changes. Left caudate head lacunar infarction. VENTRICLES: Unremarkable. No hydrocephalus. CALVARIUM: Unremarkable. PARANASAL SINUSES: Left maxillary sinus polyp or retention cyst.. MASTOID AIR CELLS: Unremarkable as visualized. No inflammatory changes. OTHER FINDINGS: None. IMPRESSION: No acute intracranial pathology. Left maxillary sinus polyp or retention cyst.
--- NOTE | 2019-03-03 17:23 | CARD ---
APPROVED REPORT Date of service: 03/03/2019 EKG Measurement Heart [id number] NM [id number] <Conclusion> Normal sinus rhythm Normal ECG
== END 2019-03-03 05:25 | disposition home or self-care (01) ==
LOC: ED 02:06
DX: J32.9 Chronic sinusitis, unspecified (principal); R42 Dizziness and giddiness; I25.10 Atherosclerotic heart disease of native coronary artery without angina pectoris; I10 Essential (primary) hypertension; E78.5 Hyperlipidemia, unspecified; Z95.5 Presence of coronary angioplasty implant and graft; F17.210 Nicotine dependence, cigarettes, uncomplicated